=== PATIENT | female | born 1985 | race African-American/Black ===

== ENCOUNTER 2022-04-20 23:08 | Emergency (ER) | payer SELFPAY ==
[~2022-04-20] VITALS: Ht 188 cm; Wt 74.1 kg
[2022-04-20 23:26] VITALS: BP 133/75
[2022-04-21 00:18] LABS: APPEARANCE,URINE CLEAR (CLEAR); BILIRUBIN,URINE NEGATIVE (NEGATIVE); GLUCOSE, URINE (UA) NEGATIVE (NEGATIVE); KETONES,URINE NEGATIVE (NEGATIVE); LEUKOCYTE ESTERASE ,URINE NEGATIVE (NEGATIVE); NITRATE,URINE NEGATIVE (NEGATIVE); OCCULT BLOOD,URINE NEGATIVE (NEGATIVE); PROTEIN,URINE 30-70 mg/dL (NEGATIVE); SPECIFIC GRAVITIY, URINE 1.023 (1.003-1.030); UROBILINOGEN,URINE <=1.0 mg/dL (<=1.0)
[2022-04-21 00:37] LABS: BACTERIA,URINE None Seen /HPF (None Seen); RBC,URINE None Seen /HPF (0-2); SQUAMOUS EPITHELIAL CELL,UR None Seen /LPF (None Seen); WBC,URINE None Seen /HPF (0-5)
[2022-04-21] MEDS ORDERED: LEVOFLOXACIN 500 MG TABLET PO ONE (01:15)
[2022-04-21] MEDS ORDERED: AZITHROMYCIN 500 MG TABLET PO ONE (01:15)
== END 2022-04-21 01:27 | disposition home or self-care (01) ==
LOC: EMS 23:12
DX: N34.2 Other urethritis (principal)
CPT/HCPCS: 99283; 81001; 87491; 87591; Q9967